=== PATIENT | male | born 1980 | race Caucasian/White ===

== ENCOUNTER 2016-11-24 13:36 | Emergency (ER) | payer OTHER ==
[~2016-11-24] VITALS: Ht 182.9 cm; Wt 74.0 kg
[~2016-11-24 13:36] MED LIST: CLINDAMYCIN HC300 MG PO; MOTRIN600 MG PO; MOTRIN800 MG PO; NOHOMEMEDS; PERCOCET 5-3251 EACH PO; PERCOCET 5/31 TABLET PO
[2016-11-24 14:40] LABS: HEMATOCRIT 47.2 % (38.0-50.0); MCHC 34.1 G/DL (30.0-36.0); MCV 90.8 FL (86-99); PLATELET COUNT 264 K/uL (156-360); RBC DIS.WIDTH-CV 11.8 % (11.8-14.6); RBC DIS.WIDTH-SD 39.2 % (39-53); WHITE BLOOD COUNT 7.3 K/uL (4.1-10.2)
[2016-11-24 14:52] LABS: CHLORIDE 102 mEq/L (99-109); POTASSIUM 3.8 mEq/L (3.7-5.4); SODIUM 138 mEq/L (136-147)
[2016-11-24 14:54] LABS: GLUCOSE 108 mg/dL (70-99)
[2016-11-24 14:55] LABS: ANION GAP 11 MEQ/L (2-14)
[2016-11-24 14:56] LABS: ADD MIUA? NO; BILIRUBIN NEGATIVE; BLOOD NEGATIVE; COLOR YELLOW ((YELLOW)); GLUCOSE (STRIP) NEGATIVE; KETONES 5; LEUKOCYTES NEGATIVE; NITRITE NEGATIVE; PROTEIN (STRIP) NEGATIVE; UCUL ADDED? NO; UROBILINOGEN 0.2 MG/DL (0.2-1.0)
[2016-11-24 14:56] LABS: TOTAL BILIRUBIN 0.9 mg/dL (0.0-1.0)
[2016-11-24 14:58] LABS: ALKALINE PHOSPHATASE 68 IU/L (3-129); GFR ESTIMATE (CALCULATED) > 59 mL/min/
[2016-11-24 14:59] LABS: UREA NITROGEN (BUN) 7 mg/dL (9-23)
[2016-11-24 15:01] LABS: LIPASE 192 U/L (1.0-51.0)
[2016-11-24] MEDS ORDERED: ZOFRAN ODT4 MG PO (16:48)
[2016-11-24] MEDS ORDERED: BENTYL20 MG PO (16:48)
[2016-11-24 18:55] VITALS: BP 145/99
== END 2016-11-24 18:56 | disposition home or self-care (01) ==
LOC: EME 13:36
PROVIDERS: Nurse Practitioner Family
DX: K85.90 Acute pancreatitis without necrosis or infection, unspecified (principal); Z87.442 Personal history of urinary calculi; Z88.0 Allergy status to penicillin
CPT/HCPCS: 74176; 74177; 80053; 81003; 83690; 85027; 99281; 99284; J1885; J2405; J7030